=== PATIENT | female | born 1985 | race Caucasian/White ===

== ENCOUNTER 2024-07-05 07:38 | Emergency (ER) | payer OTHER, SELFPAY ==
[2024-07-05 07:39] VITALS: BP 104/80; PULSE 95; RESP 18; TEMP 37; O2SAT 98
--- NOTE | 2024-07-05 08:35 | EDS_ITS ---
HPI HPI - Female History of Present Illness Chief Complaint: Vag Bld, Preg Informant: patient Pain Pain: Positive for Pelvic Pain Onset: Today Context: Sudden Onset Timing: Intermittent Location: RLQ, LLQ, Suprapubic and Back Worsened by: - (Nothing) Relieved by: - (Nothing) Bleeding Issue: Positive for Vaginal bleeding and Passing clots Onset: Today Context: Sudden Onset Timing: Continuous Current Severity: Heavy Maximum Severity: Heavy Associated Symptoms Associated Symptoms: Negative for Dysuria, Frequency or Hematuria Last known menstrual period: 14 weeks ago Test: Positive P: 8 Ab: 2 Narrative Narrative: Patient presents with vaginal bleeding and cramping. Patient states she has been having some spotting over the last week. Patient states her bleeding became heavier today. Patient states her cramping began today. Patient states her pain is mainly over her lower abdomen. Patient states it does go into her lower back. Patient states that it comes and goes. Patient admits to some heavier vaginal bleeding today. Patient states she did pass some clots. Patient does not think she passed any tissue. Patient states her last menstrual period was approximately 14 weeks ago. Patient states she had an ultrasound which showed an intrauterine at 8 weeks. Patient is 10 para 8 PFSH PFSH Medical History no medical history no medical history Allergy/AdvReac Type Severity Reaction Status Date / Time No Known Allergies Allergy Verified 07/05/24 07:50 Surgical History (Updated 07/05/24 @ 08:[address] Aj Rockwell DO) Hx of section Social History Smoking Status: Never smoker ROS ROS ED Constitutional Constitutional ED: Denies chills or fever(s) Eyes Eyes: Denies blurry vision or change in vision ENT ENT ED: Denies rhinorrhea or sore throat Cardiovascular Cardiovascular: Denies chest pain or palpitations Respiratory/Chest Respiratory/Chest: Denies cough or dyspnea Gastrointestinal Gastrointestinal: Reports abdominal pain; Denies nausea or vomiting Genitourinary Genitourinary ED: Denies dysuria or hematuria Musculoskeletal Musculoskeletal: Reports back pain; Denies neck pain Integumentary Denies abscess or rash Neurologic Neurologic: Reports headache(s); Denies weakness Allergic/Immunologic Allergic/Immunologic ED: Denies mouth swelling or urticaria EXAM Physical Exam Const Vital Signs: 07/05/24 07:39 07/05/24 09:38 07/05/24 11:00 Temperature 98.6 F Temperature Source Oral Pulse Rate 95 82 87 Respiratory Rate 18 16 14 Blood Pressure 104/80 111/75 100/70 Blood Pressure Mean 88 87 80 Pulse Ox 98 97 97 Oxygen Delivery Method Room Air Room Air Room Air Positive well nourished and well developed General Appearance ED: well developed and NAD HEENT Reports moist mucous membranes Neck supple and no JVD Resp normal respiratory effort and clear to auscultation bilaterally Cardio regular rate and regular rhythm GI soft to palpation and non-distended Palpation: tender LLQ, RLQ and suprapubic; Negative for guarding Extremity normal to inspection and full ROM Neuro oriented x3, CN's II-XII intact bilaterally and no sensory deficits noted Sensorium / Orientation: alert Motor Exam: strength 5/5 throughout Psych mental status grossly normal MDM MDM MDM Narrative Medical decision making narrative: Differential diagnosis includes spontaneous miscarriage, threatened miscarriage, urinary tract infection, and coagulopathy. CBC will be obtained to assess for leukocytosis and anemia. Basic metabolic profile will be obtained to assess for electrolyte abnormality and renal function. PT was INR and PTT will be obtained to assess for coagulopathy. Urinalysis will be obtained to assess for urinary tract infection and hematuria. Pelvic ultrasound will be obtained to assess for viability. Lab Data Attestation: I reviewed the patient's lab results. Lab results narrative: CBC was reviewed and was within normal limits. Basic metabolic profile was reviewed and was within normal limits. PT with INR and PTT were reviewed and were within normal limits. Blood type was reviewed and was a positive. Quantitative hCG was reviewed and was 2997. Urinalysis was reviewed. Leukocyte esterase was 100 with 0-5 white blood cells and 0 bacteria. Occult blood was 250 with greater than 100 red blood cells. Labs: Laboratory Results - last 24 hr 07/05/24 07/05/24 08:00 08:49 WBC 8.9 RBC 4.22 Hgb 12.7 Hct 37.6 MCV 89.1 MCH 30.1 MCHC 33.8 RDW Std Deviation 40.0 RDW Coeff of Javier 12.2 Plt Count 210 MPV 9.6 Immature Gran % (Auto) 0.500 Neut % (Auto) 78.1 H Lymph % (Auto) 14.6 L [place] % (Auto) 5.7 Eos % (Auto) 0.8 Baso % (Auto) 0.3 Absolute Neuts (auto) 6.9 Absolute Lymphs (auto) 1.30 Nucleated RBC % 0 PT 14.3 INR 1.1 APTT 28.4 Sodium 138 Potassium 3.6 Chloride 107 Carbon Dioxide 25.0 Anion Gap 6 BUN 10 Creatinine 0.60 Est GFR (MDRD) Af Amer 144 Est GFR (MDRD) Non-Af 119 BUN/Creatinine Ratio 16.6 Glucose 100 Calcium 8.7 HCG, Quant 2997 H Urine Color Red Urine Clarity Turbid Urine pH 8.0 Ur Specific [place] 1.010 Urine Protein 500 H Urine Glucose (UA) Normal Urine Ketones 5 H Urine Occult Blood 250 H Urine Nitrite Negative Urine Bilirubin Negative Urine Urobilinogen Normal Ur Leukocyte Esterase 100 H Urine RBC > 100 SEEN Urine WBC 0-5 SEEN Ur Squamous Epith Cells 0 SEEN Urine Bacteria 0 SEEN Urine Mucus 0 SEEN Blood Type A POSITIVE Radiography Diagnostic Testing: Clinical Impression(s) from Imaging Studies Obstetrics Ultrasound 07/05/24 08:43 IMPRESSION: 1. Active miscarriage is visualized with the enlarged gestational sac in the cervix/cervical canal which measures 2.66 cm which is equivalent to 7 weeks and 5 days of gestation. A single embryo is present with a crown-rump length of 9.6 mm which is equivalent to 7 weeks and 1 day, however there is no demonstrated cardiac activity indicating demise. A small amount of endocervical clotted hemorrhage is present. Electronically Signed: Lupillo Castillo MD at 10:51 EDT Reading Location ID and State: [facility] / [place] , Service support , Pelvic ultrasound was obtained. There is an active miscarriage with the gestational sac in the cervix and cervical canal. There is no demonstrated cardiac activity. This was interpreted by the radiologist and was also independently reviewed by myself. Treatment and Re-Evaluation Narrative: Patient was advised of her findings. Patient is resting comfortably on reevaluation. Patient declined analgesics at this time. Patient declined a prescription for analgesics. Patient was instructed to get plenty of rest. Patient was instructed to follow-up with her PROFESSOR OF BIOSTATISTICS in 2 to 3 days. Patient was instructed to return if worse in any way. Patient understood and was agreeable with the plan. All questions were answered. Discharge Plan Triage Chief Complaint: Vag Bld, Preg ED Provider: Aj Rockwell Dx/Rx/DC Orders Clinical Impression: Incomplete miscarriage, Pelvic pain Instructions: ED MISCARRIAGE Incomplete, ED Miscarriage Spontaneous Primary Care Provider: Care Physician,No Primary Referrals: Care Physician,No Primary [Primary Care Provider] - Activity Restrictions/Additional Instructions: Take Tylenol or ibuprofen as needed for pain. Follow-up with your PROFESSOR OF BIOSTATISTICS in 2 to 3 days. Return for worsening bleeding, cramping, or if worse in any way. Print Language: [place]i Disposition Disposition: Home, Self Care
--- NOTE | 2024-07-05 08:43 | US_ITS ---
STUDY: FIRST TRIMESTER OBSTETRICAL ULTRASOUND REASON FOR EXAM: Female, 39 years old heavy vaginal bleeding, cramping LMP: Unknown. TECHNIQUE: Transabdominal and Transvaginal TECHNICAL QUALITY: Adequate. PRIOR ULTRASOUND: None. FINDINGS: Active miscarriage is visualized with the enlarged gestational sac in the cervix/cervical canal which measures 2.66 cm which is equivalent to 7 weeks and 5 days of gestation. A single embryo is present with a crown-rump length of 9.6 mm which is equivalent to 7 weeks and 1 day, however there is no demonstrated cardiac activity indicating demise. A small amount of endocervical clotted hemorrhage is present. There is no demonstrated yolk sac.. The placenta is non-visualized. The estimated gestation age (EGA) by US is 7 weeks, 5 days. The uterus measures 10.6 x 4.5 x 5.1 centimeters. There is no demonstrated uterine fibroid. The right ovary is not visualized. There is no visualized right adnexal mass or complex lesion. The left ovary is not visualized. There is no visualized left adnexal mass or complex lesion. There is no fluid in the cul de sac. US/Transvaginal w/Preg US IMPRESSION: 1. Active miscarriage is visualized with the enlarged gestational sac in the cervix/cervical canal which measures 2.66 cm which is equivalent to 7 weeks and 5 days of gestation. A single embryo is present with a crown-rump length of 9.6 mm which is equivalent to 7 weeks and 1 day, however there is no demonstrated cardiac activity indicating demise. A small amount of endocervical clotted hemorrhage is present. Electronically Signed: Lupillo Castillo MD at 10:51 EDT ,
[2024-07-05 08:52] LABS: Bacteria 0 SEEN /hpf (None Seen); Mucous, Urine 0 SEEN /hpf (<or=2+); Squamous Epithelial Cells - UA 0 SEEN /hpf (5-10)
[2024-07-05 08:54] LABS: Absolute Neutrophil Count 6.9 X10^3/uL (2.0-7.7); Basophil# 0.03 X10^3/uL; Basophil% 0.3 % (0-1); Eosinophil# 0.07 X10^3/uL; Eosinophils% 0.8 % (0-5); Hematocrit 37.6 % (37-47); Hemoglobin 12.7 g/dL (12.0-15.0); Lymphocyte % 14.6 % (19-41); Mean Corp Hgb Conc 33.8 g/dL (32-36); Mean Corpuscular Hgb 30.1 pg (27.0-32.0); Mean Corpuscular Volume 89.1 fL (81-99); Mean Platelet Vol. 9.6 fl (6.2-12.0); Monocyte# 0.51 X10^3/uL; Monocyte% 5.7 % (0-10); NRBC Flagged by Analyzer 0 % (0-5); Neutrophil # 6.93 X10^3/uL (2.7-7.7); Neutrophil % 78.1 % (47-70); Platelet Count 210 K/mm3 (150-450); RBC Distribution Width CV 12.2 % (11.6-14.6); Red Blood Count 4.22 M/mm3 (4.2-5.4); White Blood Count 8.9 K/mm3 (4.4-11.0)
[2024-07-05 08:58] LABS: Color, Urine Red (Yellow); Glucose, Dipstick Normal (Normal); Ketone-Dipstick 5 mg/dl (Negative); Leukocyte Esterase-Dipstick 100 /ul (Negative); Nitrite-Dipstick Negative (Negative); Occult Blood-Urine 250 /ul (Negative); Protein-Dipstick 500 mg/dl (Negative); Urine Bilirubin Dipstick Negative (Negative); Urine Clarity Turbid (Clear); Urine Urobilinogen Normal (Normal)
[2024-07-05 09:04] LABS: International Normalized Ratio 1.1; Prothrombin Time (Protime)PT. 14.3 SECONDS (11.7-14.9)
[2024-07-05 09:04] LABS: Red Blood Cells-Urine > 100 SEEN /hpf (0-5); White Blood Cells 0-5 SEEN /hpf (0-5)
[2024-07-05 09:05] LABS: Partial Thromboplast Time 28.4 Seconds (24.1-36.2)
[2024-07-05 09:07] LABS: Anion Gap 6 (5-15); BUN 10 mg/dL (7-18); BUN/Creat Ratio 16.6 RATIO (10-20); Calcium,Total 8.7 mg/dL (8.5-10.1); Chloride 107 mmol/L (98-107); EST Glomerular Filtration Rate 119 mL/min (>60); Est Glom Filt Rate - Afr Amer 144 mL/min (>60); Glucose 100 mg/dL (74-106); Potassium 3.6 mmol/L (3.5-5.1); Sodium Level 138 mmol/L (136-145)
[2024-07-05 09:38] VITALS: BP 111/75; PULSE 82; RESP 16; O2SAT 97
[2024-07-05 09:50] LABS: hCG Titer Quant., Serum 2997 mIU/mL (1-3)
--- NOTE | 2024-07-05 10:53 | ED.RN ---
pt. showing bigeminy on monitor. no hx of cardiac conditions. dr. coronado aware. states no when asked if he wants a ekg
[2024-07-05 11:00] VITALS: BP 100/70; PULSE 87; RESP 14; O2SAT 97
[2024-07-05 12:18] VITALS: BP 106/78; PULSE 72; RESP 16; TEMP 36.3; O2SAT 98
--- NOTE | 2024-07-05 12:20 | ED.RN ---
PT NOTIFIED TO FOLLOW UP WITH HER MID- TODAY TO BE SEEN WITH-IN THE NEXT 2-3DAYS SINCE MISCARRIAGE IS INCOMPLETE PT AND HER WERE EDUCATED ON THE FOLLOW UP AND PURPOSE. PT ALSO TOLD TO FOLLOW UP WITH HER PRIMARY CARE PHYS D/T TELE SHOWING PVC'S DURING MONITORING. TACOS SPOKE WITH DR. MARINELLI ABOUT THIS CONCERN AND MADE HIS OWN ED NOTE ON BEHALF OF THEIR CONVERSATION.
== END 2024-07-05 12:22 | disposition home or self-care (01) ==
PROVIDERS: Emergency Provider Emergency Medicine; Visit Provider Emergency Medicine
DX: O03.4 Incomplete spontaneous abortion without complication (principal); O09.521 Supervision of elderly multigravida, first trimester; R10.2 Pelvic and perineal pain; Z3A.01 Less than 8 weeks gestation of pregnancy
CPT/HCPCS: 76817; 80048; 81001; 84702; 85025; 85610; 85730; 86900; 86901; 99283; A4216